=== PATIENT | female | born 1995 | race Hispanic/Latino ===

== ENCOUNTER 2022-12-13 20:37 | Emergency (ER) | payer BC ==
[~2022-12-13] VITALS: Ht 152.4 cm; Wt 52.6 kg
[2022-12-13] MEDS ORDERED: DICYCLOMINE HCL 10 MG CAP ONE (22:07)
[2022-12-13] MEDS ORDERED: CIPRO500 MG PO (22:11)
[2022-12-13] MEDS ORDERED: DICYCLOMINE HCL 10 MG CAP PO ONE (22:15)
[2022-12-13 22:25] VITALS: BP 113/73; PULSE 105; RESP 18; TEMP 96.2; O2SAT 99
== END 2022-12-13 22:25 | disposition home or self-care (01) ==
LOC: FSED 21:23
DX: R19.7 Diarrhea, unspecified (principal); R10.9 Unspecified abdominal pain
CPT/HCPCS: 81025; 99282